=== PATIENT | male | born 1980 | race Hispanic/Latino ===

== ENCOUNTER 2020-06-26 10:05 | Emergency (ER) | payer SELFPAY ==
[2020-06-26 10:33] LABS: Hemoglobin 14.3 g/dL (14.0-18.0); Mean Corpuscular HGB CONC 33.5 g/dL (32.0-36.0); Mean Corpuscular Hemoglobin 30.5 pg (27.0-31.0); Mean Corpuscular Volume 91.2 fL (78.0-98.0); Platelet Count 155 thou/uL (130-400); RBC Distribution Width 12.2 % (11.5-14.5); Red Blood Cell (RBC) Count 4.68 mill/uL (4.70-6.10); White Blood Cell (WBC) Count 6.6 thou/uL (4.8-10.8)
[2020-06-26] MEDS ORDERED: Iopamidol 370 76% 100 ML VIAL ONE (10:36)
[2020-06-26 10:47] LABS: ALT (SGPT) 14 U/L (8-55); AST (SGOT) 17 U/L (5-34); Albumin 3.9 g/dL (3.5-5.0); Alkaline Phosphatase 65 U/L (40-110); Anion Gap 14 mmol/L (10-20); BUN (Urea Nitrogen) 8 mg/dL (8.9-20.6); Bilirubin, Total 0.3 mg/dL (0.2-1.2); Calc. Creatinine Clearance 0 mL/min (70-130); Calcium 8.4 mg/dL (7.8-10.44); Carbon Dioxide 26 mmol/L (22-29); Chloride 106 mmol/L (98-107); Globulin 2.2 g/dL (2.4-3.5); Glucose 93 mg/dL (70-105); Lipase 8 U/L (8-78); Potassium 3.7 mmol/L (3.5-5.1); Protein, Total 6.1 g/dL (6.0-8.3); Sodium 142 mmol/L (136-145)
[2020-06-26] MEDS ORDERED: Ciprofloxacin Lactate/D5W 400 mg/200 ml Premix ONE (10:48)
[2020-06-26 11:09] LABS: #Basophils 0.1 thou/uL (0.0-0.2); #Eosinphils 0.3 thou/uL (0.0-0.7); #Lymphocytes 2.8 thou/uL (1.20-3.40); #Monocytes 0.4 thou/uL (0.11-0.59); %Basophils 1.6 % (0.0-1.0); %Eosinophils 4.3 % (0.0-10.0); %Lymphocytes 42.4 % (21.0-51.0); %Monocytes 5.6 % (0.0-10.0); %Neutrophils 46.2 % (42.0-75.0); Large Platelets SLIGHT; MDiff Complete? YES; Mean Platelet Volume 13.5 fL (7.4-10.4); Platelet Morphology Comment Appears Adequate
[2020-06-26 11:32] LABS: Bilirubin Negative (Negative); Blood, Urine Trace (Negative); Clarity Clear (Clear); Glucose, Urine (Dipstick) Negative (Negative); Ketone, Urine Negative (Negative); Leukocyte Negative (Negative); Nitrite Negative (Negative); Protein, Urine (Dipstick) Negative (Neg-Trace); Urobilinogen 0.2 mg/dL (Less than 2); pH, Urine 5.5 (5.0-9.0)
[2020-06-26 11:34] LABS: RBC/HPF 0-3 HPF (0-3); WBC/HPF None Seen HPF (0-3)
[2020-06-26 11:35] LABS: Bacteria/HPF Rare-Few HPF (None Seen); Squamous Epithelial 0-3 HPF (0-3)
--- NOTE | 2020-06-26 14:51 | CT ---
CT ABDOMEN AND PELVIS WITH CONTRAST: 06/26/20 Comparison is made with the prior study of 05/23/12. The lung bases are clear. There is a small hypodensity in the dome of the liver that is not clearly s een before, but is most likely a small 7 mm cyst. I doubt is current importance. The spleen, pancreas and gallbladder showed no acute findings. The kidneys showed no solid mass or hydronephrosis. There is most likely at least 1 subcentimeter cyst in the left kidney. The aorta is normal in caliber. The bowel shows no distention or wall thickening. No inflammatory changes are seen around bowel. No f ree air or free fluid was noted. CT of the pelvis was remarkable for some moderate concentric thickening of the urinary bladder. This could be seen in cystitis or chronic outlet obstruction situations. While the prostate is generous in size, was not impressed that it was overly large. No pelvic masses or inflammatory changes were seen . IMPRESSION: 1. No acute bowel findings, obstruction or free fluid. No inflammatory changes seen. 2. Concentric thickening of the urinary bladder. See above. Preliminary report called to the ER at 11:11 on 06/26/20. POS: HOME
== END 2020-06-26 12:10 | disposition home or self-care (01) ==
LOC: BURERS 10:05
DX: R10.32 Left lower quadrant pain (principal)
CPT/HCPCS: 74177; 80053; 81003; 81015; 83690; 85025; 93005; J0744; Q9967

== ENCOUNTER 2020-07-04 08:20 | Emergency (ER) | payer SELFPAY | END 2020-07-04 09:15 | disposition home or self-care (01) | LOC: BURERS 08:20 | DX: M54.5 Low back pain (principal); X50.0XXA Overexertion from strenuous movement or load, initial encounter | CPT/HCPCS: 99283 ==

== ENCOUNTER 2021-07-03 09:52 | Emergency (ER) | payer SELFPAY ==
[2021-07-03 10:30] LABS: #Basophils 0.1 thou/uL (0.0-0.2); #Eosinphils 0.1 thou/uL (0.0-0.7); #Lymphocytes 2.5 thou/uL (1.20-3.40); #Monocytes 0.3 thou/uL (0.11-0.59); #Neutrophils 3.9 thou/uL (1.40-6.50); %Basophils 1.7 % (0.0-1.0); %Eosinophils 1.9 % (0.0-10.0); %Lymphocytes 35.8 % (21.0-51.0); %Monocytes 4.4 % (0.0-10.0); %Neutrophils 56.3 % (42.0-75.0); Hemoglobin 14.4 g/dL (14.0-18.0); Mean Corpuscular HGB CONC 33.3 g/dL (32.0-36.0); Mean Corpuscular Hemoglobin 29.9 pg (27.0-31.0); Mean Corpuscular Volume 89.8 fL (78.0-98.0); Mean Platelet Volume 12.1 fL (7.4-10.4); Platelet Count 177 thou/uL (130-400); RBC Distribution Width 12.6 % (11.5-14.5); Red Blood Cell (RBC) Count 4.83 mill/uL (4.70-6.10); White Blood Cell (WBC) Count 6.8 thou/uL (4.8-10.8)
[2021-07-03] MEDS ORDERED: Cefepime 2 GM VIAL ONE (10:39)
[2021-07-03] MEDS ORDERED: metroNIDAZOLE 500 MG/100 ML BAG ONE (10:39)
[2021-07-03 10:46] LABS: Bilirubin Negative (Negative); Blood, Urine Negative (Negative); Clarity Clear (Clear); Glucose, Urine (Dipstick) Negative (Negative); Ketone, Urine Negative (Negative); Leukocyte Negative (Negative); Nitrite Negative (Negative); Protein, Urine (Dipstick) Negative (Neg-Trace); Urobilinogen 0.2 mg/dL (Less than 2)
[2021-07-03 10:46] LABS: ALT (SGPT) 11 U/L (8-55); AST (SGOT) 15 U/L (5-34); Albumin 3.9 g/dL (3.5-5.0); Alkaline Phosphatase 78 U/L (40-110); Anion Gap 11 mmol/L (10-20); BUN (Urea Nitrogen) 9 mg/dL (8.9-20.6); Bilirubin, Total 0.4 mg/dL (0.2-1.2); Calc. Creatinine Clearance 0 mL/min (70-130); Calcium 9.2 mg/dL (7.8-10.44); Carbon Dioxide 26 mmol/L (22-29); Chloride 108 mmol/L (98-107); Globulin 2.3 g/dL (2.4-3.5); Glucose 94 mg/dL (70-105); Lipase 11 U/L (8-78); Potassium 3.7 mmol/L (3.5-5.1); Protein, Total 6.2 g/dL (6.0-8.3); Sodium 141 mmol/L (136-145)
[2021-07-03 10:53] LABS: Platelet Morphology Comment Appears Adequate; RBC Morphology Normal
[2021-07-03 10:57] LABS: Specific Gravity, Urine 1.023 (1.002-1.036)
[2021-07-03] MEDS ORDERED: Fentanyl 100 MCG/2 ML VIAL ONE (11:08)
[2021-07-03] MEDS ORDERED: Ondansetron PF 4 MG/2 ML Vial ONE (11:08)
[2021-07-03] MEDS ORDERED: Iopamidol 370 76% 100 ML VIAL ONE (15:13)
== END 2021-07-03 12:35 | disposition home or self-care (01) ==
LOC: BURERS 09:52
DX: K57.32 Diverticulitis of large intestine without perforation or abscess without bleeding (principal)
CPT/HCPCS: 36415; 74177; 80053; 81003; 83605; 83690; 85025; 96365; 96367; J0692; J2405; J3010; Q9967

== ENCOUNTER 2021-11-25 12:08 | Emergency (ER) | payer SELFPAY ==
[2021-11-25] MEDS ORDERED: predniSONE 20 MG TAB ONE (13:15)
== END 2021-11-25 13:32 | disposition home or self-care (01) ==
LOC: BURERS 12:08
DX: J06.9 Acute upper respiratory infection, unspecified (principal)
CPT/HCPCS: J7512; J7620

== ENCOUNTER 2022-06-21 10:15 | Emergency (ER) | payer SELFPAY ==
[2022-06-21] MEDS ORDERED: Ibuprofen 800 MG TAB ONE (10:51)
[2022-06-21 11:00] LABS: Bilirubin Negative (Negative); Blood, Urine Negative (Negative); Clarity Clear (Clear); Glucose, Urine (Dipstick) Negative (Negative); Ketone, Urine Negative (Negative); Leukocyte Negative (Negative); Nitrite Negative (Negative); Protein, Urine (Dipstick) Negative (Neg-Trace); Specific Gravity, Urine 1.025 (1.005-1.030); Urobilinogen 0.2 mg/dL (Less than 2)
[2022-06-21 11:03] LABS: #Basophils 0.1 thou/uL (0.0-0.2); #Eosinphils 0.2 thou/uL (0.0-0.7); #Monocytes 0.3 thou/uL (0.11-0.59); #Neutrophils 6.7 thou/uL (1.40-6.50); %Basophils 1.5 % (0.0-1.0); %Eosinophils 2.4 % (0.0-10.0); %Lymphocytes 21.1 % (21.0-51.0); %Monocytes 3.6 % (0.0-10.0); %Neutrophils 71.4 % (42.0-75.0); Hemoglobin 15.1 g/dL (14.0-18.0); Mean Corpuscular HGB CONC 31.9 g/dL (32.0-36.0); Mean Corpuscular Hemoglobin 30.2 pg (27.0-31.0); Mean Corpuscular Volume 94.6 fl (78.0-98.0); Mean Platelet Volume 13.4 fL (7.4-10.4); Platelet Count 187 thou/uL (130-400); RBC Distribution Width 12.4 % (11.5-14.5); White Blood Cell (WBC) Count 9.3 thou/uL (4.8-10.8)
[2022-06-21 11:14] LABS: ALT (SGPT) 10 U/L (8-55); AST (SGOT) 13 U/L (5-34); Albumin 4.5 g/dL (3.5-5.0); Alkaline Phosphatase 86 U/L (40-110); Anion Gap 14 mmol/L (10-20); BUN (Urea Nitrogen) 9 mg/dL (8.9-20.6); Bilirubin, Total 0.3 mg/dL (0.2-1.2); Calc. Creatinine Clearance 0 mL/min (70-130); Calcium 9.1 mg/dL (7.8-10.44); Carbon Dioxide 26 mmol/L (22-29); Chloride 106 mmol/L (98-107); Estimated GFR 106; Globulin 2.7 g/dL (2.4-3.5); Glucose 92 mg/dL (70-105); Potassium 4.1 mmol/L (3.5-5.1); Protein, Total 7.2 g/dL (6.0-8.3); Sodium 142 mmol/L (136-145)
[2022-06-21 11:21] LABS: MDiff Complete? YES
[2022-06-21 11:22] LABS: Large Platelets SLIGHT
== END 2022-06-21 12:49 | disposition home or self-care (01) ==
LOC: BURERS 10:15
DX: I49.3 Ventricular premature depolarization (principal); N45.1 Epididymitis; R00.2 Palpitations
CPT/HCPCS: 36415; 71045; 80053; 81003; 84484; 85025; 87086; 87491; 87591; 93005